=== PATIENT | female | born 1950 | race Caucasian/White ===

== ENCOUNTER → 2021-01-16 | Outpatient (CLI) | payer MEDICARE ==
--- NOTE | 2021-01-17 04:54 | MR ---
EXAMINATION TYPE: MR shoulder RT wo con DATE OF EXAM: 01/16/2021 COMPARISON: None HISTORY: Right shoulder pain Multiplanar multiecho imaging of the right shoulder was performed without contrast. There is large shoulder joint effusion. The glenoid cinthya appear intact. Subscapularis tendon is inta ct. Biceps tendon is intact. There is no evidence for fracture. Humeral head is intact. There is mild spurring of the humeral head . There are multiple areas of fluid signal in the supraspinatus tendon over the humeral head and at t he greater tuberosity of the humerus. There is no retraction. There is full-thickness defect through the supraspinatus tendon. There is small amount of fluid in the subdeltoid bursa. There are some fill ing defects in the joint effusion on the medial aspect of the scapula. 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 IMPRESSION: Large shoulder joint effusion. Small rounded defects in the fluid could relate to synovial chondromat osis. Full-thickness tear of the supraspinatus tendon without retraction. Mild osteoarthritis at the should er joint. No fracture.
== END | disposition home or self-care (01) ==
LOC: RADMRIMAIN 10:44
PROVIDERS: ATTEND Orthopaedic Surgery
DX: M75.111 Incomplete rotator cuff tear or rupture of right shoulder, not specified as traumatic (principal); M19.011 Primary osteoarthritis, right shoulder

== ENCOUNTER → 2021-02-01 | Outpatient (CLI) | payer MEDICARE ==
--- NOTE | 2021-02-01 09:32 | XR ---
EXAMINATION TYPE: XR chest 2V DATE OF EXAM: 02/01/2021 COMPARISON: NONE HISTORY: Presurgery, history of smoking, COPD TECHNIQUE: Frontal and lateral views of the chest are obtained. FINDINGS: Heart size is within normal limits. There is prominence of the central pulmonary vasculatu re. Consider pulmonary hypertension. There is a beaded appearance of the pulmonary vasculature in the right lower lobe. Hyperaeration of lungs and flattening of the diaphragms suggestive of COPD. Athero sclerotic aorta. No focal consolidation, pneumothorax or pleural effusion. IMPRESSION: 1. Prominence of the central pulmonary vasculature and right lower lobe vessels. Consider pulmonary h ypertension. 2. No acute pulmonary disease. 3. COPD.
[2021-02-01 11:11] LABS: Basophils % (A) 1 %; Eosinophils % (A) 0 %; HCT 43.1 % (34.0-46.0); HGB 14.4 gm/dL (11.4-16.0); Lymphocytes # (A) 1.2 k/uL (1.0-4.8); Lymphocytes % (A) 18 %; MCH 31.3 pg (25.0-35.0); MCHC 33.4 g/dL (31.0-37.0); MCV 93.7 fL (80.0-100.0); Mean Platelet Volume 6.5; Monocytes # (A) 0.5 k/uL (0-1.0); Monocytes % (A) 7 %; Neutrophils # (A) 4.9 k/uL (1.3-7.7); Neutrophils % (A) 72 %; Platelet Count 279 k/uL (150-450); RDW 11.9 % (11.5-15.5); WBC 6.8 k/uL (3.8-10.6)
[2021-02-01 11:21] LABS: Potassium 4.4 mmol/L (3.5-5.1)
== END | disposition home or self-care (01) ==
LOC: LABPAT 09:01
PROVIDERS: ATTEND Orthopaedic Surgery
DX: Z01.818 Encounter for other preprocedural examination (principal); J44.9 Chronic obstructive pulmonary disease, unspecified; M75.41 Impingement syndrome of right shoulder; Z87.891 Personal history of nicotine dependence
CPT/HCPCS: 36415; 71046; 80051; 85025; 93005

== ENCOUNTER 2021-02-10 06:04 | Day surgery (SDC) | payer MEDICARE ==
[2021-02-08 13:41] VITALS: BMI 24.4
--- NOTE | 2021-02-09 09:25 | HP ---
HISTORY AND PHYSICAL CHIEF COMPLAINT: Right shoulder pain. HISTORY OF PRESENT ILLNESS: The patient is a 70-year-old, right-hand dominant, retired female who presents with a 6 month history of progressive right shoulder pain. She is having pain with overhead use and at night. She has tried medications in addition to therapy and an injection without much relief. She has persistence/progressive pain. PAST MEDICAL HISTORY: Negative. PAST SURGICAL HISTORY: Negative. CURRENT MEDICATIONS: None. ALLERGIES: She denies drug allergies. FAMILY HISTORY: Significant for cancer. SOCIAL HISTORY: Significant for previous tobacco use. REVIEW OF SYSTEMS: Sixteen-point review of systems is otherwise reviewed and is noncontributory. PHYSICAL EXAMINATION: On examination, the patient is approximately 5 feet tall, 122 pounds of mesomorphic habitus. HEENT exam is nonfocal. Neck is supple. On examination of the right shoulder, she is tender about the anterior subacromial space. She has mild subacromial crepitus. Active range of motion forward elevation 145 degrees, external rotation with the arm to the side 60 degrees, internal rotation to L2. Motor strength is 4+/5 for abduction, 5/5 for external rotation with the arm at the side. Impingement test, Neer test, and Speed test are positive. Her distal neurovascular exam appears intact in the right upper extremity. MRI report right shoulder from 01/13/2021 shows evidence of a large effusion in addition to a full-thickness tear of the supraspinatus with minimal retraction. IMPRESSION: Right shoulder impingement with symptomatic rotator cuff tear. RECOMMENDATIONS: I talked to the patient at length regarding her condition and treatment options. At this point, she remains quite symptomatic despite extensive conservative measures. After thorough discussion, she opts to proceed with surgery. We will plan to proceed with arthroscopic evaluation with probable subacromial decompression in addition to rotator cuff repair. We will likely perform that as an outpatient procedure. MMODL / IJN: [id number] /
[~2021-02-10 06:04] MED LIST: DEXAMETHASONE SOD PHOSPHATE 4 MG/ML 1 ML VIAL IV ONE; LACTATED RINGERS 1,000 ML IV SCH; MIDAZOLAM 2 MG/2 ML VIAL IV PRN; ONDANSETRON 4 MG/2 ML VIAL IVP ONE
[2021-02-10] MEDS ORDERED: LIDOCAINE 1% (10MG/ML) FOR IV START INTRADERMA ONE (06:45)
[2021-02-10] MEDS ORDERED: HYDROmorphone 0.5 MG/0.5 ML SYRINGE IVP PRN (07:00)
[2021-02-10] MEDS ORDERED: fentaNYL (PF) 50 MCG/ML 2 ML AMP IV ONE (07:06)
[2021-02-10] MEDS ORDERED: MIDAZOLAM 2 MG/2 ML VIAL IV ONE (07:06)
[2021-02-10] MEDS ORDERED: ROPIVACAINE 5 MG/ML 30 ML VIAL ONE (07:46)
[2021-02-10] MEDS ORDERED: PROPOFOL 10 MG/ML 20 ML VIAL IV ONE (07:46)
[2021-02-10] MEDS ORDERED: LIDOCAINE 1% INJ 10MG/ML (20 ML MDV) ONE (07:46)
[2021-02-10] MEDS ORDERED: SUCCINYLCHOLINE CHLORIDE 100 MG/5 ML SYR IV ONE (07:46)
[2021-02-10] MEDS ORDERED: PHENYLEPHRINE-0.9% NACL SYG 1,000 MCG/10 ML SYRINGE ONE (07:46)
[2021-02-10] MEDS ORDERED: EPINEPHrine (PF) 1 ML in SODIUM CHLORIDE 0.9% IRRIGATIO 3,000 ML IRRIGATION ONE ×8 (08:18)
[2021-02-10 09:02] VITALS: TEMP 96.9
--- NOTE | 2021-02-10 09:09 | P.OP ---
Date of Procedure: 02/10/21 Preoperative Diagnosis: Right shoulder impingement/rotator cuff tear Postoperative Diagnosis: 1 cm rotator cuff tear/acromioclavicular joint arthritis/synovial chondromatosis Procedure(s) Performed: Right shoulder arthroscopic subacromial decompression/distal clavicular resection/rotator cuff repair/removal loose bodies with humeral head chondrectomy Implants: Arthrex 4.75 mm swivel lock anchor times one, 5.5 mm swivel lock anchor 1 Anesthesia: JOSE, regional Surgeon: Norbert Ordonez Bark Fitter #1: Javier Dolan Estimated Blood Loss (ml): 10 Pathology: none sent Condition: stable Disposition: PACU Indications for Procedure: The patient's a 70-year-old female who presents with progressive right shoulder pain despite conservative treatment. A discussion of the risks and benefits of operative intervention versus continued conservative measures was made with patient. She opted to proceed with surgery. Operative risks to include infection, neurovascular injury, development of blood clots, possible incomplete resolution of symptoms, possible worsening symptoms and need for subsequent procedures was discussed. Informed consent was obtained. Operative Findings: As below Description of Procedure: The patient was brought to the operating room, and after induction of general anesthesia was placed in a beachchair position. A preoperative interscalene block was placed for postoperative analgesia. I examined the right shoulder. There was no gross block to passive motion or gross glenohumeral instability. The right upper extremity was prepped and draped in normal fashion. The bony outlines the acromion, distal clavicle, and coracoid process were outlined with a skin marker. The glenohumeral joint was inflated with 50 mL of saline utilizing a spinal needle from posterior approach. A posterior portal was made through a 5 mm skin incision 1 cm medial and inferior to the posterior lateral border time. A blunt trocar was used to easily into the joint. Diagnostic arthroscopy was performed. An anterior portal was made just lateral to the coracoid process entering the joint above the subscapularis tendon. The subscapularis tendon appeared to be intact. Anterior labrum was intact. The inferior recess was inspected. The posterior labrum was intact. The long head of the biceps along with its intra-articular attachment appeared to be intact. There were several small loose cartilaginous bodies that were removed with a motorized shaver. Grade 23 chondral changes were noted involving the humeral head and the anterior central portion. There were several loose chondral flaps were debrided back to stable base with a motorized shaver. No significant cartilage defects were noted involving the glenoid. On inspection the rotator cuff, a full-thickness tear involving the anterior aspect the supraspinatus was noted. The posterior portion of the rotator cuff appeared to be intact. A lateral portal was made 2 centimeters inferior to the anterior lateral border of the acromion. The soft tissue on the undersurface of the acromion was debrided with a motorized shaver and electrocautery clearly defining the anterior medial and lateral borders as well as the distal clavicle. An anterior inferior acromioplasty was performed with a motorized arabella starting anterolateral, then extending this posteriorly, then extending this medially. I converted to a flat acromion and this was verified in the posterior and lateral viewing portals. Significant acromioclavicular joint arthritis was noted in the distal 4 mm of the clavicle was resected with a motorized bur. Significant bursitis was noted and was resected with a motorized shaver. The rotator cuff was inspected in the anterior supraspinatus tear was defined. This is easily brought back to the ewiiaapaayp footprint. The greater tuberosity was lightly decorticating with a shaver down to a bleeding bony surface. An accessory superior lateral portals made just off the lateral edge of the acromion for anchor placement. A 4.75 mm swivel lock anchor loaded with fiber tape was then placed just off the articular surface with the appropriate starting awl. Good purchase was obtained. These fiber tapes were then passed the rotator cuff with a scorpion suture passer. A lateral row was created crisscrossing these tapes. A 5.5 mm swivel lock anchor was placed laterally. Good purchase was obtained. Final arthroscopic view showed adequate compression at the footprint. The arthroscope was then removed. The portals were closed with simple 3-0 nylon sutures. A sterile dressing was applied in addition to a sling. The patient was then awoken from general anesthesia and transferred to recovery room in good condition. Blood loss was estimated at 10 mL. No complications were incurred. Sponge and needle counts were correct in the case. Javier BURRIS assisted and the major components of the case to include arm positioning, anchor placement, and rotator cuff repair.
[2021-02-10 10:16] VITALS: BP 133/79; PULSE 87; RESP 16
--- NOTE | 2021-02-10 13:09 | P.ANPRN ---
Procedure Note - Anesthesia - Nerve Block Performed Right Interscalene Single Time Out Performed: Yes ([id number]) Date of Procedure: 02/10/21 Procedure Start Time: :06 Procedure Stop Time: 07:12 Location of Patient: PreOp Indication: Acute Post-Operative Pain, Requested by Surgeon Specifically requested for management of pain by : Norbert Ordonez Sedation Type: Sedate with meaningful contact maintained Preparation: Sterile Prep Position: Supine Catheter: None Needle Types: Pajunk Needle Gauge: 21 Ultrasound used to visualize needle placement: Yes Ultrasound used to observe medication spread: Yes Injectate: 0.5% Ropivacaine (see comment for volume) (30cc) Blood Aspirated: No Pain Paresthesia on Injection Noted: No Resistance on Injection: Normal Image Stored and Saved: Yes Events: Uneventful and Well Tolerated
== END 2021-02-10 10:48 | disposition home or self-care (01) ==
LOC: OR 06:04
PROVIDERS: ATTEND Orthopaedic Surgery
DX: M75.101 Unspecified rotator cuff tear or rupture of right shoulder, not specified as traumatic (principal); D48.0 Neoplasm of uncertain behavior of bone and articular cartilage; M19.011 Primary osteoarthritis, right shoulder; M24.011 Loose body in right shoulder; K21.9 Gastro-esophageal reflux disease without esophagitis; Z87.891 Personal history of nicotine dependence; Z80.9 Family history of malignant neoplasm, unspecified; Z79.899 Other long term (current) drug therapy
CPT/HCPCS: 64415; 76942; 29826; 29827; 29824; C1713 ×2; J2250; J1100; J2405; J0690; J0171; J2001; J3010; J2795; J2370; J0330; J2704

== ENCOUNTER 2023-05-08 12:36 | Emergency (ER) | payer MEDICARE ==
[2023-05-08 12:57] VITALS: TEMP 98.3
[2023-05-08] MEDS ORDERED: ONDANSETRON 4 MG/2 ML VIAL IVP STA (13:55)
[2023-05-08] MEDS ORDERED: MECLIZINE 25 MG TAB PO STA (13:55)
--- NOTE | 2023-05-08 13:58 | ED ---
General Adult HPI - General Chief complaint: Dizziness Stated complaint: Dizziness,Nausea Time Seen by Provider: 05/08/23 13:00 Source: patient, RN notes reviewed, old records reviewed Mode of arrival: wheelchair Limitations: no limitations - History of Present Illness Initial comments: This is a 73-year-old female who presents emergency department stating that she bent over to change CT later and she stood up and she became extremely dizzy like the room was spinning around and she became very nauseated. Patient states anytime she moves her headaches worse per patient states sitting still or closer eyes doesn't seem to help the symptoms. Patient denies any chest pain palpitations difficulty breathing or shortness of breath per patient denies any abdominal pain. Patient has not vomited but she's very nauseated. Patient denies any recent injury or head trauma. Patient denies any swelling of the legs or calf tenderness. - Related Data Home Medications Medication Instructions Recorded Confirmed Lansoprazole [Prevacid 24Hr] 15 mg PO PC-BID PRN 05/08/23 05/08/23 Previous Rx's Medication Instructions Recorded Meclizine [Antivert] 25 mg PO TID #20 tab 05/08/23 Allergies Allergy/AdvReac Type Severity Reaction Status Date / Time No Known Allergies Allergy Verified 05/08/23 15:29 Review of Systems ROS Statement: Those systems with pertinent positive or pertinent negative responses have been documented in the HPI. ROS Other: All systems not noted in ROS Statement are negative. Past Medical History Past Medical History: GERD/Reflux History of Any Multi-Drug Resistant Organisms: None Reported Past Surgical History: Hernia Repair Additional Past Surgical History / Comment(s): D&C Past Anesthesia/Blood Transfusion Reactions: No Reported Reaction Past Psychological History: No Psychological Hx Reported Smoking Status: Former smoker Past Alcohol Use History: None Reported Past Drug Use History: None Reported - Past Family History Daughter(s) Family Medical History: Pulmonary Embolus Mother Family Medical History: Cancer Additional Family Medical History / Comment(s): BREAST Sister(s) Family Medical History: Cancer Additional Family Medical History / Comment(s): 2 SISTERS General Exam - General Exam Comments Initial Comments: GENERAL: Patient is well-developed and well-nourished. Patient is nontoxic and well- hydrated and is in mild distress. ENT: Neck is soft and supple. No significant lymphadenopathy is noted. Oropharynx is clear. Moist mucous membranes. Neck has full range of motion without eliciting any pain. EYES: The sclera were anicteric and conjunctiva were pink and moist. Extraocular movements were intact and pupils were equal round and reactive to light. Eyelids were unremarkable. PULMONARY: Unlabored respirations. Good breath sounds bilaterally. No audible rales rhonchi or wheezing was noted. CARDIOVASCULAR: There is a regular rate and rhythm without any murmurs gallops or rubs. ABDOMEN: Soft and nontender with normal bowel sounds. SKIN: Skin is clear with no lesions or rashes and otherwise unremarkable. NEUROLOGIC: Patient is alert and oriented x3. Cranial nerves II through XII are grossly intact. Motor and sensory are also intact. Normal speech, volume and content. Symmetrical smile. Finger to nose testing is normal bilaterally MUSCULOSKELETAL: Normal extremities with adequate strength and full range of motion. No lower extremity swelling or edema. No calf tenderness. LYMPHATICS: No significant lymphadenopathy is noted PSYCHIATRIC: Normal psychiatric evaluation. Limitations: no limitations Course Vital Signs 05/08/23 05/08/23 12:52 14:33 Temperature 98.3 F Pulse Rate 83 84 Respiratory 20 18 Rate Blood Pressure 106/54 105/69 O2 Sat by Pulse 95 92 L Oximetry Medical Decision Making - Medical Decision Making EKG was interpreted by myself EKG shows a sinus rhythm at 70 bpm MD interval 249 tresses 81 Q-T intervals recently 90 QTC is 413. Patient's EKG shows no ST segment elevation or depression Was pt. sent in by a medical professional or institution (FATUMA Rhodes, TRANSACTION PROCESSOR, urgent care, hospital, or [facility]...) When possible be specific @ -No Did you speak to anyone other than the patient for history (EMS, parent, family, police, friend...)? What history was obtained from this source @ -No Did you review nursing and triage notes (agree or disagree)? Why? @ -I reviewed and agree with nursing and triage notes Were old charts reviewed (outside hosp., previous admission, EMS record, old EKG, old radiological studies, urgent care reports/EKG's, [facility] records)? Report findings @ -I reviewed prior charts prior lab work Differential Diagnosis (chest pain, altered mental status, abdominal pain women, abdominal pain men, vaginal bleeding, weakness, fever, dyspnea, syncope, headache, dizziness, GI bleed, back pain, seizure, CVA, palpatations, mental health, musculoskeletal)? @ -Differential Dizziness: Benign paroxysmal positional Vertigo, Menieres disease, otitis media, acoustic neuroma, vertebrobasilar insufficiency, cerebellar stroke, encephalitis, hypovolemic, arrhythmia, coronary artery syndrome, anemia, this is not meant to be an all-inclusive list EKG interpreted by me (3pts min.). @ -As above X-rays interpreted by me (1pt min.). @ -Chest x-ray showed no acute abnormality CT interpreted by me (1pt min.). @ -CT of the brain showed no acute abnormality U/S interpreted by me (1pt. min.). @ -None done What testing was considered but not performed or refused? (CT, X-rays, U/S, labs)? Why? @ -None What meds were considered but not given or refused? Why? @ -None Did you discuss the management of the patient with other professionals (professionals i.e. , PA, TRANSACTION PROCESSOR, lab, RT, psych nurse, psychotherapist social worker, holder pile driving, teacher, driver license reviewing officer, case management coordinator)? Give summary @ -No Was smoking cessation discussed for >3mins.? @ -No Was critical care preformed (if so, how long)? @ -No Were there social determinants of health that impacted care today? How? (Homelessness, low income, unemployed, alcoholism, drug addiction, transportation, low edu. Level, literacy, decrease access to med. care, shelter, rehab)? @ -No Was there de-escalation of care discussed even if they declined (Discuss DNR or withdrawal of care, Hospice)? DNR status @ -No What co-morbidities impacted this encounter? (DM, HTN, Smoking, COPD, CAD, Cancer, CVA, ARF, Chemo, Hep., AIDS, mental health diagnosis, sleep apnea, morbid obesity)? @ -None Was patient admitted / discharged? Hospital course, mention meds given and route, prescriptions, significant lab abnormalities, going to OR and other pe rtinent info. @ -Patient was given Antivert and Zofran while in the emergency department patient also received a little bit of IV fluids. Patient was reevaluated after a couple of hours and she was considerably better and was able to ambulate without problem Undiagnosed new problem with uncertain prognosis? @ -No Drug Therapy requiring intensive monitoring for toxicity (Heparin, Nitro, Insulin, Cardizem)? @ -No Were any procedures done? @ -No Diagnosis/symptom? @ -Vertigo Acute, or Chronic, or Acute on Chronic? @ -Acute Uncomplicated (without systemic symptoms) or Complicated (systemic symptoms)? @ -Complicated Side effects of treatment? @ -No Exacerbation, Progression, or Severe Exacerbation? @ -No Poses a threat to life or bodily function? How? (Chest pain, USA, IA, pneumonia, PE, COPD, DKA, ARF, appy, cholecystitis, CVA, Diverticulitis, Homicidal, Suicidal, threat to staff... and all critical care pts) @ -No - Lab Data Result diagrams: 05/08/23 14:27 05/08/23 14:27 Lab Results 05/08/23 05/08/23 05/08/23 Range/Units 14:27 14:27 14:27 WBC 14.3 H (3.8-10.6) k/uL RBC 4.42 (3.80-5.40) m/uL Hgb 14.2 (11.4-16.0) gm/dL Hct 41.5 (34.0-46.0) % MCV 94.0 (80.0-100.0) fL MCH 32.1 (25.0-35.0) pg MCHC 34.1 (31.0-37.0) g/dL RDW 11.9 (11.5-15.5) % Plt Count 262 (150-450) k/uL MPV 7.3 Neutrophils % 87 % Lymphocytes % 5 % Monocytes % 6 % Eosinophils % 0 % Basophils % 0 % Neutrophils # 12.5 H (1.3-7.7) k/uL Lymphocytes # 0.8 L (1.0-4.8) k/uL Monocytes # 0.9 (0-1.0) k/uL Eosinophils # 0.1 (0-0.7) k/uL Basophils # 0.0 (0-0.2) k/uL Sodium 133 L (137-145) mmol/L Potassium 4.4 (3.5-5.1) mmol/L Chloride 99 (98-107) mmol/L Carbon Dioxide 29 (22-30) mmol/L Anion Gap 5 mmol/L BUN 17 (7-17) mg/dL Creatinine 0.70 (0.52-1.04) mg/dL Est GFR (CKD-EPI)AfAm >90 (>60 ml/min/1.73 sqM) Est GFR (CKD-EPI)NonAf 87 (>60 ml/min/1.73 sqM) Glucose 157 H (74-99) mg/dL Calcium 9.3 (8.4-10.2) mg/dL Magnesium 2.0 (1.6-2.3) mg/dL Total Bilirubin 0.5 (0.2-1.3) mg/dL AST 24 (14-36) U/L ALT 16 (4-34) U/L Alkaline Phosphatase 77 (38-126) U/L Troponin I <0.012 (0.000-0.034) ng/mL Total Protein 6.9 (6.3-8.2) g/dL Albumin 4.3 (3.5-5.0) g/dL Disposition Clinical Impression: Vertigo Disposition: HOME SELF-CARE Condition: Good Instructions (If sedation given, give patient instructions): Vertigo (ED) Prescriptions: Meclizine [Antivert] 25 mg PO TID #20 tab Is patient prescribed a controlled substance at d/c from ED?: No Referrals: Carrie Ribera MD [Primary Care Provider] - 1-2 days Time of Disposition: 16:29
[2023-05-08 14:46] LABS: Basophils % (A) 0 %; Eosinophils # (A) 0.1 k/uL (0-0.7); Eosinophils % (A) 0 %; HCT 41.5 % (34.0-46.0); HGB 14.2 gm/dL (11.4-16.0); Lymphocytes # (A) 0.8 k/uL (1.0-4.8); Lymphocytes % (A) 5 %; MCH 32.1 pg (25.0-35.0); MCHC 34.1 g/dL (31.0-37.0); Mean Platelet Volume 7.3; Monocytes # (A) 0.9 k/uL (0-1.0); Monocytes % (A) 6 %; Neutrophils # (A) 12.5 k/uL (1.3-7.7); Neutrophils % (A) 87 %; Platelet Count 262 k/uL (150-450); RBC 4.42 m/uL (3.80-5.40); RDW 11.9 % (11.5-15.5); WBC 14.3 k/uL (3.8-10.6)
--- NOTE | 2023-05-08 14:54 | CT ---
EXAMINATION TYPE: CT brain wo con CT DLP: 1039.4 mGycm, Automated exposure control for dose reduction was used. DATE OF EXAM: 05/08/2023 2:49 PM COMPARISON: None. CLINICAL INDICATION:Female, 73 years old with history of Dizziness, vertigo TECHNIQUE: Brain: Multiple axial CT images of the brain were obtained without IV contrast. Coronal and sagittal reformats reviewed. FINDINGS: Brain: Extra-axial spaces: No abnormal extra-axial fluid collections. Ventricular system: Within normal limits Cerebral parenchyma: Mild cerebral volume loss. No acute intraparenchymal hemorrhage or mass effect. The quinones-white junction is well differentiated. Scattered hypoattenuating areas are seen within the white matter. Cerebellum: Unremarkable. Mass effect: No evidence of midline shift. Intracranial vasculature: Atherosclerotic calcifications of the intracranial vessels. Soft tissues: Normal. Calvarium/osseous structures: No depressed skull fracture. Paranasal sinuses and mastoid air cells: Mild mucosal thickening of the right maxillary sinus. The ma stoid air cells are clear. Visualized orbits: Orbital contents are intact. IMPRESSION: 1. No acute intracranial process. 2. Nonspecific white matter changes, likely secondary to chronic small vessel ischemic disease.
[2023-05-08 15:12] LABS: ALT 16 U/L (4-34); AST 24 U/L (14-36); African American GFR (CKD) >90 (>60 ml/min/1.73 sqM); Albumin 4.3 g/dL (3.5-5.0); Alkaline Phosphatase 77 U/L (38-126); Anion Gap 5 mmol/L; Blood Urea Nitrogen 17 mg/dL (7-17); Calcium 9.3 mg/dL (8.4-10.2); Carbon Dioxide 29 mmol/L (22-30); Chloride 99 mmol/L (98-107); Glucose 157 mg/dL (74-99); Non-African American GFR(CKD) 87 (>60 ml/min/1.73 sqM); Potassium 4.4 mmol/L (3.5-5.1); Sodium 133 mmol/L (137-145); Total Bilirubin 0.5 mg/dL (0.2-1.3); Total Protein 6.9 g/dL (6.3-8.2)
--- NOTE | 2023-05-08 15:13 | XR ---
EXAMINATION TYPE: XR chest 2V DATE OF EXAM: 05/08/2023 2:52 PM COMPARISON: Chest radiographs from 02/01/2021 TECHNIQUE: XR chest 2V Frontal and lateral views of the chest. CLINICAL INDICATION:Female, 73 years old with history of Chest Pain; FINDINGS: Lungs/Pleura: There is flattening of the diaphragm with increased lucency of the lungs. No evidence o f pneumothorax, pleural effusion or focal consolidation. Pulmonary vascularity: Prominence of the central pulmonary vasculature and right lower lobe vessels a gain. Heart/mediastinum: Cardiomediastinal silhouette is unremarkable. Atherosclerotic calcifications are seen in the aorta. Musculoskeletal: No acute osseous pathology. Degenerative changes of the thoracic spine. IMPRESSION: 1. No acute cardiopulmonary disease process. 2. COPD changes. 3. Prominence of the central pulmonary vasculature and right lower lobe vessels again. Correlate for pulmonary hypertension.
[2023-05-08 18:24] VITALS: BP 127/74; PULSE 78; RESP 19
== END 2023-05-08 16:40 | disposition home or self-care (01) ==
LOC: EC 12:36
DX: R42 Dizziness and giddiness (principal); K21.9 Gastro-esophageal reflux disease without esophagitis; Z87.891 Personal history of nicotine dependence; Z79.899 Other long term (current) drug therapy
CPT/HCPCS: 36415; 93005; 80053; 83735; 84484; 85025; 71046; 70450; 99285; 96374; J2405

== ENCOUNTER → 2023-09-27 | Outpatient (CLI) | payer MEDICARE ==
--- NOTE | 2023-09-27 16:23 | MM ---
Reason for Exam: Screening (asymptomatic). Last mammogram was performed 8 year(s) and 7 month(s) ago. Patient History: Menarche at age 15. First Full-Term at age 20. Postmenopausal. Sister had breast cancer. Sister had breast cancer. Mother had breast cancer, age 70. Risk Values: Mary 5 year model risk: 8.2%. NCI Lifetime model risk: 21.1%. Prior Study Comparison: 02/28/2007 Bilateral Screening Mammogram, [facility]. 11/05/2008 Bilateral Screening Mammogram, [facility]. 02/23/2015 Bilateral Screening Mammogram, [facility]. Tissue Density: There are scattered fibroglandular densities. Findings: Analyzed By CAD. Nodular densities in the left breast medial inferior aspect 4.5 cm from the nipple. There is no suspicious group of microcalcifications or new suspicious mass. Overall Assessment: Incomplete: need additional imaging evaluation, BI-RAD 0 Management: Diagnostic Mammogram of the left breast. Diagnostic Breast Ultrasound of the left breast. [facility] will attempt to contact patient to return for supplemental views and ultrasound if indicated. Patient should continue monthly self-breast exams. A clinical breast exam by your physician is recommended on an annual basis. This exam should not preclude additional follow-up of suspicious palpable abnormalities. Note on Mary scores and lifetime risk: 1. A Mary score greater than 3% is considered moderate risk. If this is the case, consider specialist referral to assess eligibility for a risk reducing agent. 2. If overall lifetime risk for the development of breast cancer is 20% or higher, the patient may qualify for future screening with alternating mammogram and breast MRI. Electronically signed and approved by: Dedrick Tolbert DO
--- NOTE | 2023-09-27 18:27 | BD ---
EXAMINATION TYPE: Axial Bone Density DATE OF EXAM: 09/27/2023 CLINICAL HISTORY: 73 years old Female. ICD-10 CODE: Z78.0 ASYMPTOMATIC MENOPAUSAL STA Height: 59.2 in Weight: 131 lbs FRAX RISK QUESTIONS: Family History (Parent hip fracture): yes mother Secondary Osteoporosis: 3. Menopause before 45: age 42 MEDICATIONS: Osteoporosis Medications: not now Which medication: Fosamax How Lon years EXAM MEASUREMENTS: Bone mineral densitometry was performed using the [employer] System. Bone mineral density as measured about the Lumbar spine is: ----- L1-L4(G/cm2): 0.788 T Score Values are as follows: ----- L1: -2.7 ----- L2: -3.1 ----- L3: -4.1 ----- L4: -3.3 ----- L1-L4: -3.3 Z Score Values are as follows: ----- L1: -0.8 ----- L2: -1.2 ----- L3: -2.2 ----- L4: -1.4 ----- L1-L4: -1.4 Bone mineral density has: Decreased -4.9% since study of: 01/24/2005 Bone mineral density about the R hip (g/cm2): 0.748 Bone mineral density about the L hip (g/cm2): 0.708 T Score values are as follows: -----R Neck: -2.5 -----L Neck: -2.6 -----R Total: -2.1 -----L Total: -2.4 Z Score values are as follows: -----R Neck: -0.6 -----L Neck: -0.7 -----R Total: -0.4 -----L Total: -0.7 Bone mineral density has: Decreased -8.2% since study of: 01/24/2005 FRAX%s: The graph provided illustrates a 26.1% chance for a major osteoporotic fx and a 11.6% chance for the hips probability for fx in 10 years time. IMPRESSION: Osteoporosis (T Score less than -2.5). There is increased fracture risk and therapy is usually indicated based on age. Re-Screen 1-2 years. NOTE: T-SCORE=SD OF THE YOUNG ADULT MEAN.
== END | disposition home or self-care (01) ==
LOC: RADMAMWWP 10:23
PROVIDERS: ATTEND Family Medicine
DX: Z12.31 Encounter for screening mammogram for malignant neoplasm of breast (principal); M81.0 Age-related osteoporosis without current pathological fracture; Z78.0 Asymptomatic menopausal state; Z80.3 Family history of malignant neoplasm of breast
CPT/HCPCS: 77067; 77080

== ENCOUNTER → 2023-10-01 | Outpatient (CLI) | payer MEDICARE ==
--- NOTE | 2023-10-01 09:41 | MM ---
Reason for Exam: Additional evaluation requested from abnormal screening. Last screening mammogram was performed less than 1 month ago. Patient History: Menarche at age 15. First Full-Term at age 20. Postmenopausal. Sister had breast cancer. Sister had breast cancer. Mother had breast cancer, age 70. Risk Values: Mary 5 year model risk: 8.2%. NCI Lifetime model risk: 21.1%. Prior Study Comparison: 11/05/2008 Bilateral Screening Mammogram, [facility]. 02/23/2015 Bilateral Screening Mammogram, [facility]. 09/27/2023 Bilateral MG screening mammo w CAD, [facility]. Tissue Density: Left: The breast tissue is heterogeneously dense. This may lower the sensitivity of mammography. Findings: Analyzed By CAD. Persistent nodular density approximately 10-11 o'clock left breast 3.5 cm from the nipple measuring 8 mm. Overall Assessment: Incomplete: need additional imaging evaluation, BI-RAD 0 Management: Diagnostic Breast Ultrasound of the left breast. . Results were given to the patient verbally at the time of exam. Patient should continue monthly self-breast exams. A clinical breast exam by your physician is recommended on an annual basis. This exam should not preclude additional follow-up of suspicious palpable abnormalities. Note on Mary scores and lifetime risk: 1. A Mary score greater than 3% is considered moderate risk. If this is the case, consider specialist referral to assess eligibility for a risk reducing agent. 2. If overall lifetime risk for the development of breast cancer is 20% or higher, the patient may qualify for future screening with alternating mammogram and breast MRI. Electronically signed and approved by: Garcia Spann M.D. Radiologis
--- NOTE | 2023-10-01 09:49 | USB ---
Patient History: Menarche at age 15. First Full-Term at age 20. Postmenopausal. Sister had breast cancer. Sister had breast cancer. Mother had breast cancer, age 70. Risk Values: Mary 5 year model risk: 8.2%. NCI Lifetime model risk: 21.1%. Technique: Method: Targeted. Doppler: Color. Patient Position: Supine. Prior Study Comparison: 11/05/2008 Bilateral Screening Mammogram, [facility]. 02/23/2015 Bilateral Screening Mammogram, [facility]. 09/27/2023 Bilateral MG screening mammo w CAD, [facility]. Findings: The upper inner quadrant of the left breast, the axilla of the left breast and the retroareolar of the left breast were scanned. Simple cyst noted at the left 10:00 position 3 cm from the nipple measuring 7 mm. No solid masses seen.. Overall Assessment: Benign, BI-RAD 2 Management: Screening Mammogram of both breasts in 1 year. A clinical breast exam by your physician is recommended on an annual basis and results should be correlated with mammographic findings. This exam should not preclude additional follow-up of suspicious palpable abnormalities. Results were given to the patient verbally at the time of exam. Electronically signed and approved by: Garcia Spann M.D. Radiologis
== END | disposition home or self-care (01) ==
LOC: RADMAMWWP 09:15
PROVIDERS: ATTEND Family Medicine
DX: R92.313 Mammographic fatty tissue density, bilateral breasts (principal)
CPT/HCPCS: 77065; 76642; G0279; 77061

== ENCOUNTER → 2023-10-22 | Outpatient (CLI) | payer MEDICARE | LOC: CPPFTMAIN 12:33 | PROVIDERS: ATTEND Family Medicine | DX: J44.9 Chronic obstructive pulmonary disease, unspecified (principal); Z78.0 Asymptomatic menopausal state; Z87.891 Personal history of nicotine dependence | CPT/HCPCS: 94060; 94726; 94729 ==

== ENCOUNTER → 2024-11-10 | Outpatient (CLI) | payer MEDICARE ==
--- NOTE | 2024-11-10 10:56 | MM ---
Reason for Exam: Screening (asymptomatic). Last mammogram was performed 1 year(s) and 2 month(s) ago. Patient History: Menarche at age 15. First Full-Term at age 20. Postmenopausal. Sister had breast cancer. Sister had breast cancer. Mother had breast cancer, age 70. Risk Values: Mary 5 year model risk: 8.3%. NCI Lifetime model risk: 20.2%. Prior Study Comparison: 02/23/2015 Bilateral Screening Mammogram, [facility]. 09/27/2023 Bilateral MG screening mammo w CAD, [facility]. 10/01/2023 Left MG 3D work up w/cad LT, [facility]. Tissue Density: The breasts are heterogeneously dense, which may obscure small masses. Findings: Analyzed By CAD. There is no suspicious group of microcalcifications or new suspicious mass in either breast. Stable nodular density left breast. Overall Assessment: Benign, BI-RAD 2 Management: Screening Mammogram of both breasts in 1 year. . Patient should continue monthly self-breast exams. A clinical breast exam by your physician is recommended on an annual basis. This exam should not preclude additional follow-up of suspicious palpable abnormalities. Note on Mary scores and lifetime risk: 1. A Mary score greater than 3% is considered moderate risk. If this is the case, consider specialist referral to assess eligibility for a risk reducing agent. 2. If overall lifetime risk for the development of breast cancer is 20% or higher, the patient may qualify for future screening with alternating mammogram and breast MRI. [facility], , 11/10/2024 10:52 AM. Electronically signed and approved by: Garcia Spann M.D. Radiologis
== END | disposition home or self-care (01) ==
LOC: RADMAMWWP 09:56
PROVIDERS: ATTEND Family Medicine
DX: Z12.31 Encounter for screening mammogram for malignant neoplasm of breast (principal); R92.333 Mammographic heterogeneous density, bilateral breasts; Z78.0 Asymptomatic menopausal state; Z80.3 Family history of malignant neoplasm of breast
CPT/HCPCS: 77067